=== PATIENT | male | born 1980 | race Caucasian/White ===

== ENCOUNTER 2017-12-21 01:46 | Inpatient (IN) | payer OTHER ==
[~2017-12-21] VITALS: Ht 165.1 cm; Wt 76.2 kg
[2017-12-21] VITALS (7 sets, daily range): BP systolic 108–122; BP diastolic 59–84
[~2017-12-21 01:46] MED LIST: NAPROSYN500 MG PO; NOHOMEMEDICATIONS
[2017-12-21] MEDS ORDERED: NORCO 5-325 TA1 EACH PO (01:58)
[2017-12-21 02:08] LABS: ABSOLUTE LYMPHOCYTES 1.2 thou/uL (0.8-5.3); ABSOLUTE MONOCYTES 0.5 thou/uL (0.0-1.2); ABSOLUTE NEUTROPHILS 6.7 thou/uL (1.6-8.1); BASOPHILS 0.6 %; EOSINOPHILS 0.4 %; HEMATOCRIT 43.3 % (42.0-52.0); HEMOGLOBIN 14.7 gm/dL (14.0-18.0); LYMPHOCYTES 13.9 %; MCH 31.1 pg (26.0-34.0); MCV 91.6 fL (80.0-100.0); MONOCYTES 5.8 %; MPV 7.3 fl. (7.2-11.1); NUCLEATED RBCS 0 /100WBC; PLATELET COUNT* 277 thou/uL (150-400); POLYS 79.3 %; RBC 4.72 mil/uL (4.50-6.00); RDW-CV 12.7 % (10.5-14.5); WBC 8.5 thou/uL (4.0-11.0)
[2017-12-21 02:29] LABS: CALCIUM 9.3 mg/dL (8.5-10.1); CREATININE 0.9 mg/dL (0.6-1.3); POTASSIUM 3.5 mmol/L (3.5-5.1)
[2017-12-21 02:36] LABS: ALBUMIN 3.7 g/dL (3.4-5.0); TOTAL BILIRUBIN 0.2 mg/dL (<0.1-1.0); TROPONIN-I LEVEL 0.2 ng/mL (<0.06)
[2017-12-21] MEDS ORDERED: CLEOCIN HCL150 MG PO (08:39)
[2017-12-21] MEDS ORDERED: RIFAMPIN 300 M300 M1 PO (08:40)
--- NOTE | 2017-12-21 10:06 | EKG ---
[place] [address] ELECTROCARDIOGRAM REPORT Name: BRENTON JOHNSON Room: [address] ADM IN .R.#: [id number] Admission: 12/21/17 Attend Phys: Adria Bassett Discharge: Date of : 82 Report #: [id number] THIS REPORT FOR: //name// [facility] ED Test Date: 2017-12-21 Test Time: 01:54:22 Pat Name: BRENTON JOHNSON Department: Room: [facility] Gender: M Retail Custodial Associate: CHAU : 1980 Requested By: JOSE Order Number: [id number] MD: Quentin Bateman Measurements Intervals [place] Rate: 79 P: 53 [place]: 138 QRS: 50 QRSD: 85 T: 49 QT: 354 QTc: 406 Interpretive Statements Sinus rhythm ST elev, probable normal early repol pattern Electronically Signed On 12-21-2017 10:06:37 CDT by Quentin Bateman [email or web address] <ELECTRONICALLY SIGNED> By: Quentin Bateman MD, [facility] 12/21/17 1006 0154 0154 Quentin Bateman MD, FACC /EPI
--- NOTE | 2017-12-21 10:08 | EKG ---
[place] [address] ELECTROCARDIOGRAM REPORT Name: BRENTON JOHNSON Room: [address] ADM IN .R.#: [id number] Admission: 12/21/17 Attend Phys: Adria Bassett Discharge: Date of : 82 Report #: [id number] THIS REPORT FOR: //name// [facility] ED Test Date: 2017-12-21 Test Time: 03:06:10 Pat Name: BRENTON JOHNSON Department: Room: [facility] Gender: M Web Content Executive: NICHOLE : 1980 Requested By: Abdirashid Chacko Order Number: [id number] MD: Quentin Bateman Measurements Intervals [place] Rate: 84 P: 64 [place]: 142 QRS: 64 QRSD: 90 T: 49 QT: 368 QTc: 436 Interpretive Statements Sinus rhythm Abnormal R-wave progression, early transition Minimal ST elevation, anterior leads Baseline wander in lead(s) V1 Electronically Signed On 12-21-2017 10:08:12 CDT by Quentin Bateman [email or web address] <ELECTRONICALLY SIGNED> By: Quentin Bateman MD, [facility] 12/21/17 1008 0306 0306 Quentin Bateman MD, [facility] /EPI
[2017-12-21 13:12] LABS: URINE BILIRUBIN NEGATIVE (Negative); URINE BLOOD NEGATIVE (Negative); URINE CLARITY CLEAR; URINE COLOR YELLOW; URINE GLUCOSE-RANDOM NEGATIVE (Negative); URINE KETONES NEGATIVE (Negative); URINE LEUKOCYTES-REFLEX NEGATIVE (Negative); URINE NITRITE-REFLEX NEGATIVE (Negative); URINE PROTEIN NEGATIVE (Negative); URINE UROBILINOGEN 0.2 E.U./dl (0.2-1.0)
[2017-12-21 13:29] LABS: AMP/METHAMP POSITIVE (Negative); BARBITURATES Negative (Negative); BENZODIAZEPINES Negative (Negative); COCAINE Negative (Negative); METHADONE Negative (Negative); OPIATES Negative (Negative); PCP Negative (Negative); THC Negative (Negative)
--- NOTE | 2017-12-21 15:15 | NUR ---
Pt is A&O. Resides at home with family. Independent and active. No DME. No hx of HH or SNF. Goal is home at [place]. Following.
[2017-12-22] VITALS: BP 98/65
[2017-12-22 04:00] VITALS: BP 107/71
[2017-12-22 04:19] LABS: ABSOLUTE BASOPHILS 0.1 thou/uL (0.0-0.2); ABSOLUTE EOSINOPHILS 0.1 thou/uL (0.0-0.7); ABSOLUTE LYMPHOCYTES 1.9 thou/uL (0.8-5.3); ABSOLUTE MONOCYTES 0.9 thou/uL (0.0-1.2); BASOPHILS 0.7 %; EOSINOPHILS 1.6 %; HEMATOCRIT 40.3 % (42.0-52.0); HEMOGLOBIN 13.6 gm/dL (14.0-18.0); LYMPHOCYTES 21.3 %; MCH 30.8 pg (26.0-34.0); MCHC 33.8 g/dL (28.0-37.0); MCV 91.2 fL (80.0-100.0); MONOCYTES 9.6 %; MPV 7.6 fl. (7.2-11.1); NUCLEATED RBCS 0 /100WBC; PLATELET COUNT* 268 thou/uL (150-400); POLYS 66.8 %; RBC 4.42 mil/uL (4.50-6.00); RDW-CV 12.9 % (10.5-14.5)
[2017-12-22 04:47] LABS: ALBUMIN 3.2 g/dL (3.4-5.0); CALCIUM 8.8 mg/dL (8.5-10.1); CREATININE 0.9 mg/dL (0.6-1.3); POTASSIUM 4.1 mmol/L (3.5-5.1); TOTAL BILIRUBIN 0.4 mg/dL (<0.1-1.0); TOTAL PROTEIN 6.7 g/dL (6.4-8.2)
--- NOTE | 2017-12-22 05:24 | NUR ---
ASSUMED PT CARE AT 1930. ASSESSMENT COMPLETED CHARTED. ABLE TO MAKE NEEDS KNOWN. IVF RUNNING NS AT 100. UP AD TAYO, CLEAR LIQUID DIET DUE TO GALL BLADDER STONES. WILL CONTINUE TO MONITOR.
--- NOTE | 2017-12-22 08:15 | NUR ---
RECEIVED REPORT. ASSUMED CARE OF PT AT 0730. VSS. CARDIAC MONTIORING IN PLACE SR. AM ASSESSMENT AND VITALS COMPELTED CHARTED. PT ALRET AND ORIETNED. PT ON RA. IVF INFUSING PER ORDERS. PT REPORTS NO PAIN THIS AM. PT IS UP AD TAYO. PT INFORMED OF PLAN OF CARE. PT COMMUNICATES UNDERSTANDING. CALL LIGHT IS WITHIN REACH. WILL CONTINUE TO MONTIOR FOR DURATION OF SHIFT.
[2017-12-22 08:27] VITALS: BP 107/79
--- NOTE | 2017-12-22 17:35 | NUR ---
VSS. PT MADE MED-SURG STATUS. PT REMAINS ON RA. IVF INFUSING PER ORDERS. PT PROGRESSING TOWARDS GOALS. PT'S PAIN WELL MANAGED WITH PAIN MEDS. PT IS UP AD TAYO. PT'S DIET ADVANCED PER SURGERY. PT AND MOTHER EDUCATED ON LOW FAT DIET. PLAN FOR PT TO D/C TOMORROW. PT MOVING TO ROOM 309. REPORT GIVEN.
--- NOTE | 2017-12-22 17:45 | NUR ---
ASSUMED CARE OF PATIENT AT THIS TIME. REPORT RECEIVED FROM CHARANJIT RAHMAN. PATIENT HAS COMPLAINTS OF ABDOMINAL PAIN, FENTANYL GIVEN. NO OTHER CONCERNS/COMPLAINTS VOICED. CALL LIGHT WITHIN REACH. WILL CONTINUE TO MONITOR.
[2017-12-22 23:15] VITALS: BP 104/70
--- NOTE | 2017-12-23 05:14 | NUR ---
PATIENT HAS BEEN SLEEPING THIS SHIFT, NO COMPLAINTS OF ANY KIND TONIGHT, VITAL SIGNS STABLE ON ROOM AIR. UP AD TAYO ROOM. CALL LIGHT IS IN REACH, WILL CONTINUE TO MONITOR.
[2017-12-23 09:00] VITALS: BP 116/70
[2017-12-23 10:51] VITALS: BP 116/70
--- NOTE | 2017-12-23 11:30 | NUR ---
DISCHARGE NOTE - REVIEWED DISCHARGE INSTRUCTIONS WITH PT. NO QUESTIONS. IV REMOVED. RIGHT TOE WAS PHOTOGRAPHED FOR CHART. ALL BELONGINGS SENT WITH PT.
--- NOTE | 2017-12-25 15:12 | CON ---
[address] [address] CONSULTATION Name: BRENTON JOHNSON Room: [address] IN .#: [id number] Admission: 12/21/17 Attend Phys: Adria Bassett Discharge: 12/23/17 Date of : 82 Report #: [id number] THIS REPORT FOR: //name// CC: KIERSTEN physician/PCP Richar Garnett DATE OF SERVICE: 12/21/2017 TYPE OF REPORT: Cardiology consultation. HISTORY OF PRESENT ILLNESS: The patient is a 37-year-old single white male who I was asked to see in the hospital today after he had an abnormal troponin. The history is obtained from the patient. He has apparently never been here to [place] before. He does note that in March, he had an episode epigastric pain. He was admitted to [facility]. He was told he needed to have his gallbladder out. He was discharged but never returned to have a surgery. He actually never had a pain in his abdomen since that time. 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 He states that about a month ago, he had a sore on his second toe of his right foot. He was admitted to [facility]. He required incision and drainage of the toe and suturing. He is placed on antibiotics. The toe pain is improved. He was doing well until last night and at about 1 in the morning, he awakened with an epigastric discomfort. It persisted, so he finally came to the Emergency Room here at [place]. He was admitted for further evaluation and treatment. He did feel diaphoretic, somewhat short of breath and lightheaded. He denied the pain radiating down his arms. He has had no vomiting, diarrhea or bleeding. He denies exertional dyspnea, palpitations. PAST MEDICAL HISTORY: He has had his wisdom teeth removed in the past. He has been told in the past, his blood pressure is high and he has had high cholesterol, never been on medications. No history of diabetes. MEDICATIONS: His only current medication include antibiotics. ALLERGIES: He has no known drug allergies. FAMILY HISTORY: He has been adopted, so it is unknown. SOCIAL HISTORY: He is single, never been , has one child. He lives with parents in [place], works in construction and unfortunately has no medical insurance. He has a history of smoking half pack of cigarettes a day. Rarely drinks alcohol. He does have his illicit drug use including IV heroin and IV methamphetamine. He snorted cocaine in the past. He has not used IV drugs for some time now. REVIEW OF SYSTEMS: He has no history of stroke, asthma, peptic ulcer disease, [place] [address] CONSULTATION Name: BRENTON JOHNSON Room: [address] IN [facility]#: [id number] Admission: 12/21/17 Attend Phys: Adria Bassett Discharge: 12/23/17 Date of : 82 Report #: [id number] liver disease, kidney disease or cancer. He saw a psychiatrist in the past when he was in high school. PHYSICAL EXAMINATION: GENERAL: Revealed a young male who appeared in no acute distress. VITAL SIGNS: He had a blood pressure of 120/80, pulse 70 and he is afebrile. HEENT: He was anicteric. Conjunctivae pink. Mucous membranes moist. NECK: Veins nondistended. Neck was supple. CHEST: Clear to auscultation. CARDIOVASCULAR: Regular rate and rhythm without murmur or rub. ABDOMEN: He had some mild right upper quadrant tenderness and is soft. EXTREMITIES: Had no edema. Posterior tibial pulse 3+ bilaterally. SKIN: Warm and dry. NEUROLOGICAL: Nonfocal. LYMPHATIC: No adenopathy. MUSCULOSKELETAL: No joint effusion. RADIOLOGICAL DATA: His ECG showed a sinus rhythm, small inferior Q-waves but no ST or T-wave changes were noted other than mild early repolarization. X-rays in the Emergency Room last night, he had a portable chest x-ray that showed normal heart size and clear lung tejada. CT scan of the abdomen with contrast revealed mild prominence of the duodenum, otherwise unremarkable. Ultrasound of the abdomen showed hepatic steatosis, hemangioma of the liver, gallstones in the gallbladder, some pericholecystic fluid and positive Rouse signs. Venous scan of the legs showed no DVT. LABORATORY DATA: His workup so far: Sodium 137 and glucose 100. Lipase 194, SGOT 36, alkaline phosphatase mildly elevated at 123 and albumin 3.7. His troponin on admission was 0.2 and this morning is 0.17. D-dimer 0.83. Drug screen positive for methamphetamines. White blood cell count 8.5 and hemoglobin 14.7. His urinalysis is negative for protein and negative leukocytes. IMPRESSION AND RECOMMENDATIONS: 1. Borderline troponin. The patient had no history of angina. No ECG changes. Suspect nonspecific finding. Recommend no further cardiac evaluation. 2. Right upper quadrant pain. Concern about cholecystitis. 3. History of IV drug abuse. 4. Tobacco abuse. <ELECTRONICALLY SIGNED> By: Quentin Bateman MD, [facility] 12/25/17 1512 1532 [id number] Carolyn Bateman MD, FACC /nt
== END 2017-12-23 11:30 | disposition home or self-care (01) | DRG 280 ==
LOC: M.ERS 01:46 → M.TBA-ER 05:22 → M.2W 05:22 → M.3W 12-22 17:38
PROVIDERS: Emergency Medicine; Internal Medicine; ADMIT Internal Medicine
DX: I21.4 Non-ST elevation (NSTEMI) myocardial infarction (principal); G92 Toxic encephalopathy; K80.20 Calculus of gallbladder without cholecystitis without obstruction; I10 Essential (primary) hypertension; F17.210 Nicotine dependence, cigarettes, uncomplicated; F19.90 Other psychoactive substance use, unspecified, uncomplicated; B19.20 Unspecified viral hepatitis C without hepatic coma; L08.9 Local infection of the skin and subcutaneous tissue, unspecified; B95.62 Methicillin resistant Staphylococcus aureus infection as the cause of diseases classified elsewhere; Z79.899 Other long term (current) drug therapy; Z86.19 Personal history of other infectious and parasitic diseases